=== PATIENT | male | born 1985 | race Caucasian/White ===

== ENCOUNTER 2024-10-23 14:45 | Day surgery (SDC) | payer OTHER, SELFPAY ==
[2024-10-23] VITALS (13 sets, daily range): BP systolic 111–140; BP diastolic 54–91; BMI 31.4
--- NOTE | 2024-10-23 11:41 | ED.GENMED ---
History of Present Illness
<CECILIA Romo - Last Filed: 10/23/24 14:53>
General
Chief Complaint: Anal/Rectal Problem
Source: patient
Exam Limitations: none
Time Seen by Provider: 10/23/24 11:18
Nursing documentation reviewed up to this point in time: agreed with
History of Present Illness
History of Present Illness:
39-year-old male presents to the ER for evaluation. Patient reports he has a sex toy stuck in his rectum since 7:30 this morning. He did go to urgent care was sent here. He attempted to try to get it out at home without success. He does feel
that he feels it when he palpates his abdomen.
Phy Exam
<CECILIA Romo - Last Filed: 10/23/24 14:53>
General Physical Exam
General Presentation: no apparent distress
General age: appears stated age
General Skin: warm and dry
General Habitus: normal
General Mental: alert
General Hydration: appears well hydrated
Gastrointestinal Exam
Gastrointestinal Exam: non tender, soft and other (Rectal exam done no foreign body palpated)
Course
<CECILIA Romo - Last Filed: 10/23/24 14:53>
Orders/Labs/Results
Orders:
Orders
10/23/24 11:35
CR Abdomen - 2 Views Urgent
Reason For Exam: fb
10/23/24 13:10
IV Insert/Care/Rem.- Treatment PRN
10/23/24 13:15
WOUND/OSTOMY CONSULT Routine
Reason for Consult: b/l marking
10/23/24 13:31
Complete Blood Count/With Diff Urgent
Comprehensive Metabolic Panel Urgent
10/23/24 14:07
Fentanyl Citrate/Pf [Sublimaze] 25 mcg IV [id number] PRN
HYDROmorphone [Dilaudid] 0.25 mg IV PACU-Q5MPRN PRN
HYDROmorphone [Dilaudid] 0.5 mg IV PACU-Q5MPRN PRN
Ondansetron Injectable [Zofran] 4 mg IV PACU-ONCEPRN PRN
Prochlorperazine [Compazine] 5 mg IV PACU-ONCEPRN PRN
Notify MD As Directed
Notify physician if: for SDS patients with known or suspected sleep obstructive sleep apnea, monitor in the
PACU.
Notify MD for any apneic/desaturation episodes
O2 Therapy [RESP] Urgent
Titrate/Wean O2 to maintain O2 sat greater than (%): 92
Special Instructions: -Provide supplemental oxygen to achieve O2 sat of 92% or greater.
-After 15 min, may wean O2 and discontinue if patient is able to maintain O2 sat of 92%
or greater during recovery period.
If patient is a discharge home, without oxygen therapy, notify anestheiologist if
unable to maintain O2 SAT of 92% or greater on room air for MD clearance.
10/23/24 14:15
Normosol (Mult Electrolytes) [Normosol-R/Plasmalyte-A] 1,000 ml IV PER PROTOCOL
10/23/24 14:45
Normosol (Mult Electrolytes) [Normosol-R/Plasmalyte-A] 1,000 ml IV PER PROTOCOL
10/23/24 14:48
Fentanyl Citrate/Pf [Sublimaze] 25 mcg IV PACU-T19MKMS PRN
HYDROmorphone [Dilaudid] 0.25 mg IV PACU-Q5MPRN PRN
HYDROmorphone [Dilaudid] 0.5 mg IV PACU-Q5MPRN PRN
Ondansetron Injectable [Zofran] 4 mg IV PACU-ONCEPRN PRN
Prochlorperazine [Compazine] 5 mg IV PACU-ONCEPRN PRN
Abnormal Lab Results
10/23/24
13:31
RBC 4.30 L 10^6/uL
(4.70-6.10)
Hgb 12.7 L g/dL
(13.0-18.0)
Hct 37.5 L %
(39.0-52.0)
MPV 10.7 H fL
(7.4-10.4)
Absolute Neuts (auto) 8.9 H 10^3/uL
(1.4-6.5)
Neutrophils % 82.8 H %
(42.2-75.2)
Lymphocytes % 11.5 L %
(20.5-51.1)
Chloride 108 H mmol/L
(98-107)
10/23/24 13:31
10/23/24 13:31
Vital Signs
Initial and Last Documented VS:
Initial Vital Signs
Temp Pulse Resp BP Pulse Ox
99.6 F 77 18 140/90 98
10/23/24 10:47 10/23/24 10:47 10/23/24 10:47 10/23/24 10:47 10/23/24 10:47
Last Documented Vital Signs
Temp Pulse Resp BP Pulse Ox
99.6 F 69 16 128/71 100
10/23/24 10:47 10/23/24 14:00 10/23/24 14:00 10/23/24 14:00 10/23/24 14:00
Pay Station Department Manager consulted with Physician
Pay Station Department Manager consulted with physician?: Yes (femi )
Name of Physician Consulted: femi
<Mavis Pineda MD - Last Filed: 10/23/24 13:15>
Orders/Labs/Results
Orders:
Orders
10/23/24 11:35
CR Abdomen - 2 Views Urgent
Reason For Exam: fb
10/23/24 13:10
IV Insert/Care/Rem.- Treatment PRN
10/23/24 13:15
WOUND/OSTOMY CONSULT Routine
Reason for Consult: b/l marking
10/23/24 13:31
Complete Blood Count/With Diff Urgent
Comprehensive Metabolic Panel Urgent
10/23/24 14:07
Fentanyl Citrate/Pf [Sublimaze] 25 mcg IV PACU-[id number] PRN
HYDROmorphone [Dilaudid] 0.25 mg IV PACU-Q5MPRN PRN
HYDROmorphone [Dilaudid] 0.5 mg IV PACU-Q5MPRN PRN
Ondansetron Injectable [Zofran] 4 mg IV PACU-ONCEPRN PRN
Prochlorperazine [Compazine] 5 mg IV PACU-ONCEPRN PRN
Notify MD As Directed
Notify physician if: for SDS patients with known or suspected sleep obstructive sleep apnea, monitor in the
PACU.
Notify MD for any apneic/desaturation episodes
O2 Therapy [RESP] Urgent
Titrate/Wean O2 to maintain O2 sat greater than (%): 92
Special Instructions: -Provide supplemental oxygen to achieve O2 sat of 92% or greater.
-After 15 min, may wean O2 and discontinue if patient is able to maintain O2 sat of 92%
or greater during recovery period.
If patient is a discharge home, without oxygen therapy, notify anestheiologist if
unable to maintain O2 SAT of 92% or greater on room air for MD clearance.
10/23/24 14:15
Normosol (Mult Electrolytes) [Normosol-R/Plasmalyte-A] 1,000 ml IV PER PROTOCOL
10/23/24 14:45
Normosol (Mult Electrolytes) [Normosol-R/Plasmalyte-A] 1,000 ml IV PER PROTOCOL
10/23/24 14:48
Fentanyl Citrate/Pf [Sublimaze] 25 mcg IV PACU-[id number] PRN
HYDROmorphone [Dilaudid] 0.25 mg IV PACU-Q5MPRN PRN
HYDROmorphone [Dilaudid] 0.5 mg IV PACU-Q5MPRN PRN
Ondansetron Injectable [Zofran] 4 mg IV PACU-ONCEPRN PRN
Prochlorperazine [Compazine] 5 mg IV PACU-ONCEPRN PRN
Abnormal Lab Results
10/23/24
13:31
RBC 4.30 L 10^6/uL
(4.70-6.10)
Hgb 12.7 L g/dL
(13.0-18.0)
Hct 37.5 L %
(39.0-52.0)
MPV 10.7 H fL
(7.4-10.4)
Absolute Neuts (auto) 8.9 H 10^3/uL
(1.4-6.5)
Neutrophils % 82.8 H %
(42.2-75.2)
Lymphocytes % 11.5 L %
(20.5-51.1)
Chloride 108 H mmol/L
(98-107)
10/23/24 13:31
10/23/24 13:31
Vital Signs
Initial and Last Documented VS:
Initial Vital Signs
Temp Pulse Resp BP Pulse Ox
99.6 F 77 18 140/90 98
10/23/24 10:47 10/23/24 10:47 10/23/24 10:47 10/23/24 10:47 10/23/24 10:47
Last Documented Vital Signs
Temp Pulse Resp BP Pulse Ox
99.6 F 69 16 128/71 100
10/23/24 10:47 10/23/24 14:00 10/23/24 14:00 10/23/24 14:00 10/23/24 14:00
<CECILIA Romo - Last Filed: 10/23/24 14:53>
MDM/Problems Addressed
Differential Diagnosis Includes:
Not limited to foreign body rectal, less likely perforation
MDM/Problems Addressed:
As documented patient is a 39-year-old male with a foreign body in his rectum since 7:30 in the morning. He presents awake alert no acute distress I am unable to palpate this rectally. X-ray done confirmed radiopaque foreign body which appears to
be in the sigmoid colon. Case reviewed with ED physician Case reviewed with colorectal surgery.
<CECILIA Romo - Last Filed: 10/23/24 14:53>
*Radiology
Radiology exam reviewed: radiology read reviewed
*Pulse Oximetry
SaO2: 98
Oxygen Mode of Delivery: Room air
Patient hypoxic: no
*Critical Care Note
Total Time (30-74mins, 75-104mins- exclusive of procedures): Not Applicable
<CCEILIA Romo - Last Filed: 10/23/24 14:53>
Patient Management
Discussion with other providers: [employer] (DR Swan )
ED Attending Note
<CECILIA Romo - Last Filed: 10/23/24 14:53>
-
Portions of this chart may have been created with voice recognition software.� Occasional wrong word or��sound alike� substitutions may have occurred due to the inherent limitations of voice recognition software.
<Mavis Pineda MD - Last Filed: 10/23/24 13:15>
ED Attending Note
Patient seen and examined by attending physician: Yes
I performed the substantive portion of visit, reviewed & personally made and approve the management plan that is documented in note by myself or WILMER.: Yes
ED Attending Note:
Patient appears well nontoxic. Walk around comfortably. Breathing comfortably. Abdomen is soft
Discharge Plan
Departure
Patient Disposition: OR
Date of Disposition: 10/23/24
Time of Disposition: 13:10
Admit to: OR
Admit to doctor: radha
Presentation/result/management discussed w/ accepting MD/DO: radha
Patient with high blood pressure during this ER visit?: Yes
Condition: Fair
Covid-19: Not Applicable
Discharge Problem:
rectal foreign body
Interventions
Interventions:
*Risk Screen - Suicide Last Done: 10/23/24 10:49
*General Assessment Last Done: 10/23/24 10:49
*Neglect/Abuse Screening Last Done: 10/23/24 10:49
*ED- Fall Risk Assessment Last Done: 10/23/24 11:29
*Nursing Disposition Last Done: 10/23/24 14:40
OO-Tenjmp-Npqsgtjqml Assessment Last Done: 10/23/24 11:29
ED-Skin Assessment Last Done: 10/23/24 11:29
Discharge Date and Time
Discharge Date/Time: 10/23/24 14:41
--- NOTE | 2024-10-23 12:51 | HPS.HSE ---
Family Physician
-
Family Physician: Bang Glover DO
Chief Complaint
-
foreign object in rectum
History of Present Illness
39-year-old male, with a past medical history of depression, presents to [place] ER due to a foreign object in his rectum. The patient used a sex toy with a rubber base at 730 this morning and it migrated too far out for him to retrieve. The
battery has since . He was unable to remove at this time. X-ray shows foreign object in the rectosigmoid colon. Denies abdominal pain. Denies nausea or vomiting.
Medical History
Past Medical History
Past Medical History: Reports Psychiatric (depression)
Past Surgical History: Reports None
Social History
Tobacco: Non-smoker
Personal:
Living: With Family
Family History
Family History: Not pertinent
Allergies / Home Medications
Allergies reflects when Allergies were last updated in [facility].
Home Medications with original date entered in [facility]
Allergy/Medication List:
Allergies: none
Medications:
Wellbutrin 100mg po daily
Arnuity Ellipta as needed
Review of Systems
-
History Source: Patient
A 12 point ROS was completed and negative except as noted: Yes
Abdomen/GI: Reports Other (foreign object in rectum)
Physical Exam
Vital Signs
Vital Signs
Temp Pulse Resp BP Pulse Ox
99.6 F 64 18 122/69 99
10/23/24 10:47 10/23/24 12:22 10/23/24 12:22 10/23/24 12:22 10/23/24 12:22
Physical Exam
General: Well Developed, Well Nourished and No Apparent Distress
GI: Soft and Other (hardness felt suprapubic)
Rectal: Other (tip of the object noted on Dr. Swan's fingertip when patient beared down)
Neuro: AO x 3
Psych: Calm
Data Reviewed
-
Diagnostic Radiology: Image Personally Visualized and interpreted
Old Records: Reviewed
Impression/Plan
-
IMPRESSION: 39 yo male with a foreign object in his rectum
PLAN:
-OR today for retrieval. Will first attempt with a colonoscope, then surgery if unable to retrieve.
-Stoma marking by wound RN should he require a colostomy.
-Remain NPO.
-Discussed plan with patient who agrees.
--- NOTE | 2024-10-23 13:13 | WOUNDNOTE ---
[facility] RN note: Patient for a GI OR procedure. Louise Morton Colorectal PA requested stoma markings both sides. Stoma marked patient in bilateral upper quadrants over the rectus muscle avoiding skin creases. Upper quadrants chosen d/t less concern
for appliance leakage. Patient stoma marked in lying, sitting and standing positions. LUQ stoma arthur is 6cm to L of midline and 6.9cm above the umbilical line. RUQ stoma arthur 5.8cm to R of midline and 6.6cm above the umbilical line. Instructed
patient surgeon makes the final decision with stoma placement. [place] texted update to [facility] re: upper quadrants stoma marked.
[2024-10-23 13:40] LABS: Hematocrit 37.5 % (39.0-52.0); Hemoglobin 12.7 g/dL (13.0-18.0); Mean Corp Hgb Conc. 33.9 g/dL (33.0-37.0); Mean Corpuscular Volume 87.2 fL (80.0-94.0); Nucleated Red Blood Cells % 0 % (-); Platelet Count 319 10^3/uL (130-400); Red Cell Dist. Width 12.6 % (11.5-14.5)
[2024-10-23 14:06] LABS: ALT (SGPT) 34 U/L (0-50); AST (SGOT) 35 U/L (17-59); Albumin 4.8 g/dl (3.5-5.0); Alkaline Phosphatase 75 U/L (38-126); Blood Urea Nitrogen 11 mg/dl (9-20); Calcium 9.5 mg/dl (8.4-10.2); Carbon Dioxide 24 mmol/L (22-30); Chloride 108 mmol/L (98-107); Estimated Creatinine Clearance 105 ml/min; Glucose 96 mg/dl (70-99); Potassium 4.5 mmol/L (3.5-5.1); Sodium 140 mmol/L (135-145); Total Protein 7.1 g/dl (6.3-8.2); eGFR > 60.00
--- NOTE | 2024-10-23 16:15 | W.IMMPOSTOP ---
Addendum entered and electronically signed by Sadi Swan MD 10/23/24 16:34:
Patient's updated via phone conversation.
Original Note:
Surgical Immed Post Op Note
-
Primary Surgeon: Arabella Swan MD
Assisting Surgeon: none
Pre-op Diagnosis: rectal foreign body
Post-op Diagnosis: same
Procedure Performed: 1) flexible sigmoidoscopy 2) anorectal exam under anesthesia with retrieval of rectal foreign body
Anesthesia Type: MAC
Specimen / Cultures: none
Estimated Blood Loss: 5 cc
Complications: no immediate
Operative Findings: 1) large rectal foreign body (purple battery operated rubber vibrator) 2) rectal superficial mucosal trauma
Will keep overnight for observation.
Clears ok.
--- NOTE | 2024-10-23 18:09 | PTCARENOTE ---
Pt arrived to 2S in bed. Full assessment completed. No signs of rectal bleeding upon assessment. IVF infusing per order. Pt c/o urge to urinate, ambulated to bathroom with a standby assist, gait steady. Pt educated on CLD, verbalized understanding.
Bed locked and in the lowest position, safety maintained. Oriented to room and call wynne.
[2024-10-23] MEDS: NORMOSOL-R/PLASMALYTE-A 1000 IV (18:26)
[2024-10-23] MEDS: FLOVENT 44 MCG INHALER 2 PUFF INH (20:34)
[2024-10-24 03:20] VITALS: BP 96/52
[2024-10-24 07:10] VITALS: BP 125/74
[2024-10-24 07:29] LABS: Hematocrit 37.4 % (39.0-52.0); Hemoglobin 12.5 g/dL (13.0-18.0); Mean Corp Hgb Conc. 33.4 g/dL (33.0-37.0); Mean Corpuscular Volume 87.2 fL (80.0-94.0); Nucleated Red Blood Cells % 0 % (-); Platelet Count 317 10^3/uL (130-400); Red Cell Dist. Width 12.5 % (11.5-14.5)
[2024-10-24 07:54] LABS: Blood Urea Nitrogen 11 mg/dl (9-20); Calcium 9.5 mg/dl (8.4-10.2); Carbon Dioxide 26 mmol/L (22-30); Chloride 107 mmol/L (98-107); Estimated Creatinine Clearance 116 ml/min; Glucose 111 mg/dl (70-99); Magnesium 2.1 mg/dl (1.6-2.3); Potassium 4.7 mmol/L (3.5-5.1); Sodium 140 mmol/L (135-145); eGFR > 60.00
[2024-10-24] MEDS: WELLBUTRIN XL (24 hour extended release) 150 MG PO (08:20)
[2024-10-24] MEDS: FLOVENT 44 MCG INHALER 2 PUFF INH (08:31)
[2024-10-24 11:52] VITALS: BP 118/75
--- NOTE | 2024-10-24 13:12 | W.PN.CRS1 ---
Today's Communication / Plan
-
As below
Assessment/Plan
-
39-year-old male who presents with rectal foreign body requiring surgery
POD 1 exam under anesthesia and removal of foreign body, flexible sigmoidoscopy�no mucosal injuries and mucosa well-perfused, but hemorrhagic
AFVSS
WBC 10.9, Hb 12.5 from 12.7
� Advance to regular diet
� Pain control
� OOB/I-S
Dispo�if tolerating regular diet without any increase in pain, okay for DC
Subjective Data
Subjective Data
Date of Service: October 24, 2024
After surgery, patient passed some blood per rectum a few times. This morning, he passed some stool with less blood. Most recently, he had a stool with minimal blood.
Denies any N/V and tolerating clears.
Denies any abdominal pain or rectal pain.
Voiding.
Objective Data
-
Vital Signs
Temp Pulse Resp BP Pulse Ox
97.9 F 78 16 118/75 98
10/24/24 11:52 10/24/24 11:52 10/24/24 11:52 10/24/24 11:52 10/24/24 11:52
Intake & Output
10/23/24 10/24/24 10/25/24
06:59 06:59 06:59
Intake Total 480 / 480 1200 / 1200
Balance 480 / 480 1200 / 1200
Intake:
Oral fluids 480 / 480 480 / 480
IV fluids (Total) 720 / 720
Other:
Number of approximated MODERATE 1 2
amounts of urine
Lab Results
10/24/24 06:25
10/24/24 06:25
Physical Exam
-
General: No Acute Distress and AOx3
HEENT: Grossly Normal
Abdomen: Soft, Non Distended, Non Tender, No Guarding and No Rebound
Skin: Warm and Dry
--- NOTE | 2024-10-24 13:59 | CM ---
Reviewed the chart notes. Patient resides with spouse in one story home. Patient reports no DME/VN/SNF. Home no needs. Spouse will provide transportation.
--- NOTE | 2024-10-24 14:11 | PTCARENOTE ---
Patient drove himself to the hospital and wanted to drive himself home. Patient had general anesthesia yesterday that was not stopped till 1618. Asked Dr. Newton who instructed RN to ask anesthesia. Asked Dr. Shaver from anesthesia who said it was
okay.
== END 2024-10-24 14:05 | disposition home or self-care (01) ==
LOC: SDS 14:45
PROVIDERS: Nurse Practitioner; ATTENDING PHYSICIAN Surgery; EMERGENCY PHYSICIAN Emergency Medicine; FAMILY PHYSICIAN Student in an Organized Health Care Education/Training Program
DX: T18.5XXA Foreign body in anus and rectum, initial encounter (principal); W44.8XXA Other foreign body entering into or through a natural orifice, initial encounter; Y93.89 Activity, other specified
CPT/HCPCS: 45332; 74019; 80048; 80053; 83735; 85025; 94640; 99284